=== PATIENT | female | born 1970 ===

== ENCOUNTER 2017-06-28 04:12 | Emergency (ER) | payer BC ==
[2017-06-28] MEDS ORDERED: Sodium Chloride 0.9% 1,000 ML IV ONE (05:37)
[2017-06-28] MEDS ORDERED: DiphenhydrAMINE 50 mg/ml Inj IVP STA (05:37)
--- NOTE | 2017-06-28 05:48 | C.PDOC ---
History Of Present Illness 46 year old female who presents to the ER with a complaint of a headache, abdominal pain, and vomiting since that began today. Patient reports she has a Hx of headache and notes she takes aleve; however, today has no relief from pain. Denies diarrhea, dizziness, or change in vision. Time Seen by Provider: 06/28/17 04:55 Chief Complaint (Nursing): Abdominal Pain History Per: Patient History/Exam Limitations: no limitations Onset/Duration Of Symptoms: Hrs Current Symptoms Are (Timing): Still Present Severity: Mild Pain Scale Rating Of: 5 Radiation Of Pain To:: None Quality Of Discomfort: Unable To Describe Associated Symptoms: Nausea, Vomiting. denies: Fever, Chills, Diarrhea Exacerbating Factors: None Alleviating Factors: None Recent travel outside of the [place]: No Abnormal Vaginal Bleeding: No Past Medical History Reviewed: Historical Data, Nursing Documentation, Vital Signs Vital Signs: Last Vital Signs Temp 98.1 F 06/28/17 04:37 Pulse 73 06/28/17 06:03 Resp 74 H 06/28/17 07:01 BP 115/69 06/28/17 07:01 Pulse Ox 100 06/28/17 07:06 - Medical History PMH: Anxiety Surgical History: No Surg Hx Family History: States: Unknown Family Hx - Social History Hx Alcohol Use: No Hx Substance Use: No Review Of Systems Constitutional: Negative for: Fever, Chills Eyes: Negative for: Vision Change Gastrointestinal: Positive for: Nausea, Vomiting, Abdominal Pain Neurological: Positive for: Headache. Negative for: Dizziness Physical Exam - Physical Exam Appears: Non-toxic, No Acute Distress Skin: Normal Color, Warm, Dry, No Rash Head: Atraumatic, Normacephalic Eye(s): bilateral: Normal Inspection, PERRL, EOMI Ear(s): Bilateral: Normal Oral Mucosa: Moist Throat: No Erythema, No Exudate Neck: Normal, Supple Chest: Symmetrical, No Tenderness Cardiovascular: Rhythm Regular, No Friction Rub, No Murmur Respiratory: Normal Breath Sounds, No Rales, No Rhonchi, No Wheezing Gastrointestinal/Abdominal: Soft, No Tenderness Extremity: Normal ROM, No Swelling Neurological/Psych: Oriented x3, Normal Speech, Normal Cognition, Normal Motor Gait: Steady ED Course And Treatment - Laboratory Results Result Diagrams: 06/28/17 05:51 06/28/17 05:51 O2 Sat by Pulse Oximetry: 100 (Room air) Pulse Ox Interpretation: Normal Medical Decision Making Medical Decision Making: Plan: * Blood work * CXR * Urinalysis * Benadryl * Pepcid * Reglan * IV fluids Disposition - Disposition Disposition Time: 07:05 Condition: FAIR Forms: [facility] (Wallisian) - Clinical Impression Clinical Impression: Headache - Scribe Statement The provider has reviewed the documentation as recorded by the Scribe Shyam Cornejo All medical record entries made by the Scribe were at my direction and personally dictated by me. I have reviewed the chart and agree that the record accurately reflects my personal performance of the history, physical exam, medical decision making, and the department course for this patient. I have also personally directed, reviewed, and agree with the discharge instructions and disposition. Physician Patient Turnover Patient Signed Over To: Janet Cruz Handoff Comments: Pending CT scan results and disposition
[2017-06-28] MEDS ORDERED: DiphenhydrAMINE 50 mg/ml Inj ONE (05:50)
[2017-06-28] MEDS ORDERED: Sodium Chloride 0.9% 1,000 ML ONE (05:51)
[2017-06-28 05:54] LABS: BASO % 0.4 % (0.0-2.0); EOS # 0.1 K/uL (0.0-0.7); EOS % 1.2 % (0.0-4.0); HEMATOCRIT 35.2 % (34.0-47.0); LYMPH # 1.4 K/uL (1.0-4.3); LYMPH % 30.1 % (20.0-40.0); MEAN CELL VOLUME 91.4 fL (81.0-99.0); MEAN CORPUSCULAR HEMOGLOBIN 30.7 pg (27.0-31.0); MEAN CORPUSCULAR HGB CONC 33.6 g/dL (33.0-37.0); MEAN PLATELET VOLUME 7.9 fL (7.2-11.7); MONO # 0.3 K/uL (0.0-0.8); MONO % 7.5 % (0.0-10.0); RED CELL DISTRIBUTION WIDTH 13.9 % (11.5-14.5); WHITE BLOOD COUNT 4.6 K/uL (4.8-10.8)
[2017-06-28 06:04] LABS: RBC URINE 1 /hpf (0-3); URINE BILIRUBIN NEGATIVE (NEGATIVE); URINE BLOOD NEGATIVE (NEGATIVE); URINE COLOR Yellow (YELLOW); URINE GLUCOSE (UA) NORMAL (Normal); URINE KETONE NEGATIVE (NEGATIVE); URINE LEUKOCYTE ESTERASE NEG Leu/uL (Negative); URINE PROTEIN NEGATIVE (NEGATIVE); URINE UROBILINOGEN NORMAL mg/dL (0.2-1.0); WBC URINE < 1 /hpf (0-5)
[2017-06-28 06:45] LABS: ALB/GLOB RATIO 1.4 (1.0-2.1); ALKALINE PHOSPHATASE 68 U/L (38-126); ALT/SGPT 26 U/L (9-52); AST/SGOT 38 U/L (14-36); BILIRUBIN,TOTAL 0.2 mg/dL (0.2-1.3); BLOOD UREA NITROGEN 16 mg/dL (7-17); CARBON DIOXIDE 28 mmol/L (22-30); CHLORIDE 101 mmol/L (98-107); GFR AFRICAN-AMERICAN > 60; GLUCOSE,RANDOM 95 mg/dL (65-105); POTASSIUM 3.4 mmol/L (3.6-5.2); SODIUM 139 mmol/L (132-148); TOTAL PROTEIN 6.5 g/dL (6.3-8.3)
--- NOTE | 2017-06-28 07:23 | CT ---
EXAM: CT Head Without Intravenous Contrast EXAM DATE/TIME: 06/28/2017 5:54 AM CLINICAL HISTORY: 46 years old, female; Pain; Headache TECHNIQUE: Axial computed tomography images of the head/brain without intravenous contrast. All CT scans at this facility use one or more dose reduction techniques, viz.: automated exposure control; ma/kV adjustment per patient size (including targeted exams where dose is matched to indication; i.e. head); or iterative reconstruction technique. COMPARISON: No relevant prior studies available. FINDINGS: There is no subdural or subarachnoid hemorrhage. There is no intraparenchymal hemorrhage. Normal cardenas white differentiation is noted. No midline shift or mass effect is identified. Calvarium and visualized facial bones appear intact. There are mucosal thickening of the left greater than right ethmoid sinus, minimal involvement maxillary sinus. IMPRESSION: No evidence of acute cerebral hemorrhage or edema.
--- NOTE | 2017-06-28 07:59 | RAD ---
PROCEDURE: CHEST RADIOGRAPH, 1 VIEW HISTORY: abd pain COMPARISON: None available. FINDINGS: LUNGS: Clear. Shallow lung volumes. PLEURA: No pneumothorax or pleural fluid seen. CARDIOVASCULAR: Normal. OSSEOUS STRUCTURES: Mid to inferior thoracic spondylosis VISUALIZED UPPER ABDOMEN: Normal. OTHER FINDINGS: None. IMPRESSION: No active disease.
[2017-06-28 09:11] VITALS: BP 108/69; PULSE 72; RESP 18; TEMP 97.8; O2SAT 98
== END 2017-06-28 09:30 | disposition home or self-care (01) ==
LOC: C.ER 04:12
DX: R51 Headache (principal); R10.13 Epigastric pain
CPT/HCPCS: 70450; 71010; 80053; 81001; 83690; 84703; 85025; 96361; 96374; 96375; 99285; J1200; J2765; J7040